=== PATIENT | female | born 1970 | race American Indian/Alaskan Native ===

== ENCOUNTER 2021-08-12 20:15 | Emergency (ER) | payer MEDICAID ==
[2021-08-12 20:54] VITALS: BP 146/72
[2021-08-12] MEDS ORDERED: HYDROcodone/ACETAMINOPHEN 5-325 MG TAB PO ONE (21:09)
--- NOTE | 2021-08-12 21:09 | Emergency Department Report ---
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 SHE STATES HER L ANKLE AND KNEE HURG HOME RX INSULIN KEPPRA EARL SHE STATES GIVEN SHE HAS DM SHE WANTED TO COME "GET CHECKED" IN THE ER. SHE IS NEUROVASC INTACT Complaint: fall -: Sudden, hour(s) Fall From: standing When Fall Occurred: 4-6 hours THREAD SEPARATOR Fall Witnessed: yes, by bystander Place Fall Occurred: other Loss of Consciousness: none Prolonged Down Time?: no Symptoms Prior to Fall: none Location: other Severity: mild Severity scale (0 -10): 3 Quality: aching Context: tripped/slipped Associated Symptoms: denies. denies: headache, neck pain, numbness, weakness, chest paint, shortness of breath, abdominal pain, hematuria, unable to walk, lightheaded, vertigo, confusion - Related Data Previous Rx's Medication Instructions Recorded Last Taken Type traMADoL [Ultram] 50 mg PO Q6HR PRN #10 tablet 08/12/21 Unknown Rx Allergies Allergy/AdvReac Type Severity Reaction Status Date / Time metformin AdvReac Nausea Verified 08/12/21 21:47 ED Review of Systems ROS: Stated complaint: LEG/BACK PAIN Other details as noted in HPI Comment: All other systems reviewed and negative ED Past Medical Hx - Past Medical History Previous Medical History?: Yes Hx Hypertension: Yes Hx CVA: No Hx Heart Attack/AMI: No Hx Diabetes: Yes Hx Deep Vein Thrombosis: No Hx Pulmonary Embolism: No Hx Seizures: Yes Hx Asthma: Yes - Surgical History Past Surgical History?: Yes Additional Surgical History: , tubal ligation - Family History Family history: no significant - Social History Smoking Status: Never Smoker Substance Use Type: None - Medications Home Medications: Home Medications Medication Instructions Recorded Confirmed Last Taken Type traMADoL [Ultram] 50 mg PO Q6HR PRN #10 tablet 08/12/21 Unknown Rx ED Physical Exam - General Limitations: No Limitations General appearance: alert, in no apparent distress - Head Head exam: Present: atraumatic, normocephalic - Eye Eye exam: Present: normal appearance - ENT ENT exam: Present: mucous membranes moist - Neck Neck exam: Present: normal inspection - Respiratory Respiratory exam: Present: normal lung sounds bilaterally. Absent: respiratory distress - Cardiovascular Cardiovascular Exam: Present: regular rate, normal rhythm. Absent: systolic murmur, diastolic murmur, rubs, gallop - GI/Abdominal GI/Abdominal exam: Present: soft, normal bowel sounds - Extremities Exam Extremities exam: Present: normal inspection - Back Exam Back exam: Present: normal inspection - Neurological Exam Neurological exam: Present: alert, oriented X3 - Psychiatric Psychiatric exam: Present: normal affect, normal mood - Skin Skin exam: Present: warm, dry, intact, normal color. Absent: rash ED Course Vital Signs 08/12/21 20:49 Temperature 98.8 F Pulse Rate 80 Respiratory 18 Rate Blood Pressure 146/72 [Left] O2 Sat by Pulse 99 Oximetry ED Medical Decision Making - Radiology Data Radiology results: report reviewed, image reviewed NAP - Medical Decision Making Vital Signs 08/12/21 20:49 Temperature 98.8 F Pulse Rate 80 Respiratory 18 Rate Blood Pressure 146/72 [Left] O2 Sat by Pulse 99 Oximetry XRAY NOTED MEDICATED FOR PAIN IN ER DC HOME WITH DC PLAN OF CARE INCLUDING PCP FOLLOW UP. PT VERBALIZES UNDERSTANDING OF PLAN OF CARE. ON DC PT AMBULATORY AND REMAINS NEUROVASC INTACT - Differential Diagnosis RO FX Critical care attestation.: If time is entered above; I have spent that time in minutes in the direct care of this critically ill patient, excluding procedure time. ED Disposition Clinical Impression: Fall, Ankle pain, Knee pain Disposition: 01 HOME / SELF CARE / HOMELESS Is pt being admited?: No Does the pt Need Aspirin: No Condition: Stable Instructions: Fall Prevention in the Home, Adult, [id number] Additional Instructions: ICE TONIGHT WARM COMPRESSES IN AM MOTRIN OR TYLENOL OVER THE COUNTER FOR MILD/MOD PAIN ULTRAM FOR SEVERE PAIN ONLY FOLLOW UP WITH PCP NEXT WEEK IF PAIN PERSISTS Prescriptions: traMADoL [Ultram] 50 mg PO Q6HR PRN #10 tablet PRN Reason: Pain Referrals: BOO ROBERTSON MD [Staff Physician] - 3-5 Days Time of Disposition: 22:18
--- NOTE | 2021-08-12 22:05 | XRay Report ---
LUMBAR SPINE 3 VIEWS 2129 INDICATION: lower BACK PAIN, fall COMPARISON: None available. FINDINGS: No fractures or subluxations are noted. Mild degenerative changes are seen without signific ant disc space narrowing. Mild lower facet arthritic changes are noted. LEFT KNEE 3 VIEWS 2121 INDICATION: Fall COMPARISON: None available. FINDINGS: No fractures or dislocations are seen. Minimal degenerative changes are noted. No obvious j oint effusion is seen. LEFT ANKLE 3 VIEWS 2119 INDICATION: Fall, left ankle COMPARISON: None available. FINDINGS: No fractures or dislocations are seen. Signer Name: Louie Fountain MD Signed: 08/12/2021 10:01 PM Workstation Name: [id number]
== END 2021-08-12 22:38 | disposition home or self-care (01) ==
LOC: ED 20:15
DX: M25.572 Pain in left ankle and joints of left foot (principal); M25.562 Pain in left knee; E11.8 Type 2 diabetes mellitus with unspecified complications; I10 Essential (primary) hypertension; Z88.8 Allergy status to other drugs, medicaments and biological substances; W01.0XXA Fall on same level from slipping, tripping and stumbling without subsequent striking against object, initial encounter; Y93.89 Activity, other specified; Y92.89 Other specified places as the place of occurrence of the external cause; Y99.8 Other external cause status
CPT/HCPCS: 72100; 99283

== ENCOUNTER 2022-06-14 12:27 | Emergency (ER) | payer MEDICAID ==
[2022-06-14 13:25] VITALS: BP 146/69
== END 2022-06-15 11:20 | disposition left against medical advice (07) ==
LOC: ED 12:27
DX: S16.1XXA Strain of muscle, fascia and tendon at neck level, initial encounter (principal); Z53.21 Procedure and treatment not carried out due to patient leaving prior to being seen by health care provider; X58.XXXA Exposure to other specified factors, initial encounter; Y93.89 Activity, other specified; Y92.89 Other specified places as the place of occurrence of the external cause; Y99.8 Other external cause status

== ENCOUNTER 2022-07-04 05:37 | Emergency (ER) | payer MEDICAID ==
[2022-07-04 05:43] VITALS: BP 140/64
--- NOTE | 2022-07-04 06:18 | XRay Report ---
Left shoulder 3 views INDICATION: Left shoulder pain after injury IMPRESSION: No fracture or subluxation of the left shoulder is identified. Signer Name: Washington Howe MD Signed: 07/04/2022 6:13 AM Workstation Name: [id number]
[2022-07-04] MEDS ORDERED: KETOROLAC 30 MG/1 ML INJ IV ONE (08:12)
[2022-07-04] MEDS ORDERED: ONDANSETRON 4 MG/2 ML INJ IV ONE (08:12)
--- NOTE | 2022-07-04 08:27 | Emergency Department Report ---
Upper Extremity - HPI Chief Complaint: Extremity Problem,Nontraumatic Stated Complaint: LEFT SIDE NECK/SHOULDER PAIN Time Seen by Provider: 07/04/22 07:46 Upper Extremity: Left Shoulder (here with left shoulder pain that started 2 days ago and progressively getting worse) Occurred When: 2 Days Mechanism: Unsure Severity: moderate Symptoms: Yes Pain with Movement, Yes Limited Range of Movement, Yes Swelling (without erythema or warmth), No Deformity, No Numbness, No Weakness, No Bruising/Ecchymosis, No Laceration or Abrasion ED Review of Systems ROS: Stated complaint: LEFT SIDE NECK/SHOULDER PAIN Other details as noted in HPI Comment: All other systems reviewed and negative Musculoskeletal: myalgia, other (left shoulder from the left side neck and shoulder and upper arm x 2 days) ED Past Medical Hx - Past Medical History Hx Hypertension: Yes Hx CVA: No Hx Heart Attack/AMI: No Hx Diabetes: Yes Hx Deep Vein Thrombosis: No Hx Pulmonary Embolism: No Hx Seizures: Yes Hx Asthma: Yes - Surgical History Additional Surgical History: , tubal ligation - Social History Smoking Status: Never Smoker Substance Use Type: None - Medications Home Medications: Home Medications Medication Instructions Recorded Confirmed Last Taken Type traMADoL [Ultram] 50 mg PO Q6HR PRN #10 tablet 08/12/21 Unknown Rx Upper Extremity Exam - Exam General: Vital signs noted. No distress. Alert and acting appropriately. Head and Torso: Yes Neck Tenderness (left side without erythema or warmth), No HEENT Abnormality, No Chest/Lungs Abnormality, No Abdominal Tenderness, No Back Tenderness Shoulder Exam: Yes Shoulder Tenderness (left ), No Clavicle Tenderness, No Normal Range of Motion in Shoulder (reduce on left but normal on right), No Shoulder Deformity, No AC Joint Tenderness Arm Exam: Yes Arm/Humerus Tenderness, No Arm Deformity Elbow: Yes Normal Range of Motion in Elbow, No Elbow Tenderness, No Elbow Deformity Forearm: No Forearm Tenderness, No Forearm Deformity, No Pain with Pronation, No Pain with Supination Wrist: Yes Normal ROM in Wrist, No Wrist Tenderness, No Wrist Deformity, No Snuffbox Tenderness Hand: Yes Normal ROM in Digit(s), No Hand Tenderness, No Hand Deformity, No Digit Tenderness, No Digit(s) Deformity, No Tendon Dysfunction CMS Exam: Yes Normal Distal Pulses, Yes Normal Capillary Refill, Yes Normal Distal Sensation, No Broken Skin ED Course Vital Signs 07/04/22 05:40 Temperature 97.8 F Pulse Rate 69 Respiratory 18 Rate Blood Pressure 140/64 O2 Sat by Pulse 97 Oximetry - Reevaluation(s) Reevaluation #1: 07/04/22 13:10 I was informed by the bedside nurse that patient decided to sign out AGAINST MEDICAL ADVICE shortly after she was given pain treatment. ED Medical Decision Making - Lab Data Result diagrams: 07/04/22 08:28 07/04/22 08:28 - Medical Decision Making here with left neck, shoulder and arm pain associated with noted swelling, and tenderness to palpation and ROM in any direction-- with any trauma or fall -- this is concerning for capsulitis even though patient reports that it started 2 days ago so will get shoulder xray-- also worrisome for venous thrombosis so will order D-dimer and US if positive-- routine order checked incase ant icoagulant is needed. In the meantime will treat with toradol 30 mg IV and Zofran for symptomatic relief while waiting for the above workup-- Critical care attestation.: If time is entered above; I have spent that time in minutes in the direct care of this critically ill patient, excluding procedure time. ED Disposition Clinical Impression: Left shoulder pain Qualifiers: Chronicity: acute Qualified Code(s): M25.512 - Pain in left shoulder Disposition: 07 LEFT AGAINST MEDICAL ADVICE Is pt being admited?: No Does the pt Need Aspirin: No Condition: Stable Instructions: Shoulder Pain, [id number], How to Use Cold Therapy Additional Instructions: Even though you are signing out AGAINST MEDICAL ADVICE you can almost return to the emergency room if your symptoms worsen and you will be evaluated and treated accordingly. Referrals: PRIMARY CARE, [Primary Care Provider] - 3-5 Days Time of Disposition: 13:11
[2022-07-04 09:16] LABS: Basophils # (Auto) 0.1 K/mm3 (0.0-0.1); Eosinophils # (Auto) 0.3 K/mm3 (0.0-0.4); Eosinophils % (Auto) 2.6 % (0.0-4.3); Hematocrit 36.1 % (30.3-42.9); Hemoglobin 12.4 gm/dl (10.1-14.3); Lymphocytes # (Auto) 3.3 K/mm3 (1.2-5.4); Lymphocytes % (Auto) 31.6 % (13.4-35.0); Mean Corpuscular HGB Conc 34 % (30-34); Mean Corpuscular Volume 86 fl (79-97); Monocytes # (Auto) 0.5 K/mm3 (0.0-0.8); Monocytes % (Auto) 5.1 % (0.0-7.3); Platelet Count 360 K/mm3 (140-440); Red Blood Count 4.22 M/mm3 (3.65-5.03); Red Cell Distribution Width 14.9 % (13.2-15.2)
[2022-07-04 09:20] LABS: Alanine Aminotransferase 18 units/L (7-56); Albumin 4.4 g/dL (3.9-5); Blood Urea Nitrogen 14 mg/dL (7-17); Calcium 9.5 mg/dL (8.4-10.2); Hemolysis Index 34
[2022-07-04 09:40] LABS: INR 0.98 (0.87-1.13)
[2022-07-04 09:41] LABS: Partial Thromboplastin Time 33.2 Sec. (24.2-36.6)
[2022-07-04 10:06] LABS: BUN/Creatinine Ratio 28
== END 2022-07-04 11:20 | disposition left against medical advice (07) ==
LOC: ED 05:37
DX: M25.512 Pain in left shoulder (principal); I10 Essential (primary) hypertension; E11.9 Type 2 diabetes mellitus without complications; R56.9 Unspecified convulsions; J45.909 Unspecified asthma, uncomplicated
CPT/HCPCS: 36415; 73030; 80053; 85025; 85379; 85610; 85730; 96374; 96375; 99284; J1885; J2405